=== PATIENT | female | born 1975 | race Caucasian/White ===

== ENCOUNTER 2023-07-21 09:15 | Emergency (ER) | payer OTHER, SELFPAY ==
[2023-07-21 09:27] VITALS: BP 141/66; PULSE 96; O2SAT 98
[2023-07-21 09:30] VITALS: BP 141/66; PULSE 91; RESP 20; TEMP 36.7; O2SAT 98; BMI 30.4
--- NOTE | 2023-07-21 09:45 | DI.RAD.S_ITS ---
PROCEDURE: XR CHEST 1V INDICATIONS: chest pain TECHNIQUE: One view of the chest was acquired. COMPARISON: None. FINDINGS: Surgical changes and devices: None. Lungs and pleura: Lungs are clear. No pleural effusions or pneumothorax. Mediastinum: Mediastinal contours appear normal. Heart size is normal. Bones and chest wall: No suspicious bony lesions. Overlying soft tissues appear unremarkable. IMPRESSION: No acute cardiopulmonary abnormality is seen. Dictated by: Cris Alcantara M.D. on 07/21/2023 at 10:08 Approved by: Cris Alcantara M.D. on 07/21/2023 at 10:09
[2023-07-21 10:07] LABS: Add Manual Diff / Slide Review NO; Basophils Absolute Auto 100 /uL (0-100); Basophils Percent Auto 0.6 % (0-2); Eosinophils Absolute Auto 200 /uL (0-450); Eosinophils Percent Auto 1.9 % (2-4); Hematocrit 39.3 % (36-46); Hemoglobin 13.7 g/dL (12.0-16.0); Lymphocytes Absolute Auto 1800 /uL (1100-4500); Lymphocytes Percent Auto 17.2 % (25-40); Mean Corpuscular HGB Conc 34.8 % (30-36); Mean Corpuscular Hemoglobin 31.5 PG (26-34); Mean Corpuscular Volume 90.5 fL (80-100); Monocytes Absolute Auto 700 /uL (0-900); Monocytes Percent Auto 6.6 % (3-14); Neutrophils Absolute Auto 7600 /uL (1500-7000); Neutrophils Percent Auto 73.7 % (50-75); Platelet Count 249 X10^3/uL (150-400); Red Blood Cell Count 4.35 X10^6/uL (4.0-5.2); Red Cell Distribution Width 12.7 % (11.6-14.8); White Blood Cell Count 10.4 X10^3/uL (4.5-11.0)
[2023-07-21 10:12] LABS: Prothrombin Time 11.2 SECONDS (9.4-12.5)
[2023-07-21 10:15] LABS: PTT Partial Thromboplastin Tim 33 SECONDS (25.1-36.5)
[2023-07-21 10:20] LABS: Alanine Aminotransferase 72 IU/L (<35); Albumin 4.1 g/dL (3.5-5.0); Albumin Globulin Ratio 1.9 (1.0-2.8); Alkaline Phosphatase 66 U/L (38-126); Aspartate Aminotransferase 51 IU/L (14-36); BUN Creatinine Ratio 18.2 (6-22); Bilirubin Total 0.5 mg/dL (0.2-1.3); Blood Urea Nitrogen 12 mg/dL (7-17); Calcium 8.8 mg/dL (8.4-10.2); Carbon Dioxide 28 mmol/L (22-32); Chloride 106 mmol/L (98-107); Creatine Kinase 60 U/L (30-135); Estimated Glomerular Filt Rate > 60 mL/min (>60); Globulin 2.2 g/dL (1.7-4.1); Glucose 92 mg/dL (70-100); HEMOLYSIS < 15 (0-50); Lipase 41 U/L (23-300); Potassium 3.8 mmol/L (3.4-5.1); Sodium 137 mmol/L (137-145); Total Protein 6.3 g/dL (6.3-8.2)
[2023-07-21 10:29] LABS: Troponin I < 0.012 ng/mL (0.01-0.034)
--- NOTE | 2023-07-21 10:36 | ED.DIZZY ---
HPI - Dizziness General Chief Complaint: Dizziness Stated Complaint: Light headed , Shaky doesn't feel good Time Seen by Provider: 07/21/23 10:29 Source: patient Mode of arrival: Ambulatory History of Present Illness HPI Narrative: Patient is a 48-year-old female with history of migraine presenting today with headache some right-sided facial numbness and some dizziness. He reports that yesterday she just started feeling not well like something with right. He would some numbness in her right hand that started after she slept on it funny and quickly went away. Today she is noticing mild headache which is not typical for migraines. And some dizziness when she stands up. She denies any fever no significant neck pain no chest pain or palpitations. No abdominal pain no nausea or vomiting. She has not taken anything for headache today it has not severe she just does not feel quite right when she is lying down she no longer feels dizzy. She is able to ambulate in the ED significant problem or issue Patient History Social History Smoking Status: Never smoker Smoking Status: Never smoker alcohol intake frequency: 0-2 drinks per day Substance Use Type: does not use Exam Initial Vital Signs Initial Vital Signs: Vital Signs Pulse Rate 96 H 07/21/23 09:27 Blood Pressure 141/66 H 07/21/23 09:27 Pulse Oximetry 98 07/21/23 09:27 GENERAL: Alert well-appearing 48-year-old female and in no acute distress. HEENT: Head atraumatic,EOMI, pupils reactive, face symmetric, moist mucous membranes CARDIOVASCULAR: Regular rate and rhythm without murmurs, rubs or gallops. RESPIRATORY: Breath sounds equal bilaterally, no wheezes rales or rhonchi. ABDOMEN: Soft, nontender. Normoactive bowel sounds all 4 quadrants. No guarding or rebound. EXTREMITIES: Normal range of motion, no clubbing or edema. Neurovascularly intact NEUROLOGICAL: Alert and oriented x4.Normal gait and speech. Cranial nerves II through XII grossly intact. Good [id number], good [id number], strength equal bilaterally, no dysarthria or aphasia, sensation in tact to soft touch bilaterally, no visual changes, no facial droop SKIN: Warm, dry, no laceration, no petechiae, no rashes or lesions. Scores NIH Stroke Scale Level of Conciousness: Alert, keenly responsive Ask month/age: Answers both questions correctly. Open/close eyes, close hand: Performs both tasks correctly Best gaze horizontal: Normal Visual borges: No visual loss Facial palsy: Normal symetrical movement Left arm drift: No drift for full 10 sec Right arm drift: No drift for full 10 sec Left leg drift: No drift for full 5 sec Right leg drift: No drift for full 5 sec Limb ataxia: Absent Sensory on face/arms/legs: Mild to moderate sensory loss, can tell touch Best language: No aphasia, normal Dysarthria: Normal Extinction or inattention: No abnormality Total NIH Stroke scale score: 1 Course Orders Ordered: Discontinued Medications Sodium Chloride (Normal Saline 0.9%) 1,000 mls @ 1,000 mls/hr IV BOLUS ONE Stop: 07/21/23 11:35 Last Infusion: 07/21/23 12:19 Dose: Infused Documented By: Admin: 07/21/23 10:47 Dose: 1,000 mls/hr Documented By: KARLI Ketorolac Tromethamine (Ketorolac 30 Mg/Ml Vial) 15 mg IV NOW ONE Stop: 07/21/23 10:37 Last Admin: 07/21/23 10:48 Dose: 15 mg Documented By: KARLI Ondansetron HCl (Ondansetron 4 Mg/2 Ml Inj) 4 mg IV NOW ONE Stop: 07/21/23 10:37 Last Admin: 07/21/23 12:20 Dose: Not Given Documented By: MOISES Vital Signs Vital signs: Vital Signs - 8 hr 07/21/23 09:27 07/21/23 09:27 07/21/23 09:30 Temperature 98.1 F Pulse Rate 96 H 91 H Respiratory Rate 20 Blood Pressure 141/66 H 141/66 H Pulse Oximetry 98 98 Oxygen Delivery Method Room Air 07/21/23 11:57 07/21/23 11:57 07/21/23 12:00 Temperature Pulse Rate 88 Respiratory Rate Blood Pressure 132/65 125/61 Pulse Oximetry 100 Oxygen Delivery Method 07/21/23 12:00 Temperature Pulse Rate 88 Respiratory Rate Blood Pressure Pulse Oximetry 99 Oxygen Delivery Method MDM - Dizziness Lab Data 07/21/23 09:58 07/21/23 09:58 Labs: Lab Results 07/21/23 Range/Units 09:58 WBC 10.4 (4.5-11.0) X10^3/uL RBC 4.35 (4.0-5.2) X10^6/uL Hgb 13.7 (12.0-16.0) g/dL Hct 39.3 (36-46) % MCV 90.5 (80-100) fL MCH 31.5 (26-34) PG MCHC 34.8 (30-36) % RDW 12.7 (11.6-14.8) % Plt Count 249 (150-400) X10^3/uL Neut % (Auto) 73.7 (50-75) % Lymph % (Auto) 17.2 L (25-40) % [place] % (Auto) 6.6 (3-14) % Eos % (Auto) 1.9 L (2-4) % Baso % (Auto) 0.6 (0-2) % Neut # (Auto) 7600 H (1796-7405) /uL Lymph # (Auto) 1800 (3116-7848) /uL [place] # (Auto) 700 (0-900) /uL Eos # (Auto) 200 (0-450) /uL Baso # (Auto) 100 (0-100) /uL PT 11.2 (9.4-12.5) SECONDS INR 1.0 (0.9-1.3) APTT 33 (25.1-36.5) SECONDS Sodium 137 (137-145) mmol/L Potassium 3.8 (3.4-5.1) mmol/L Chloride 106 (98-107) mmol/L Carbon Dioxide 28 (22-32) mmol/L BUN 12 (7-17) mg/dL Creatinine 0.66 (0.52-1.04) mg/dL Estimated GFR > 60 (>60) mL/min BUN/Creatinine Ratio 18.2 (6-22) Glucose 92 (70-100) mg/dL Calcium 8.8 (8.4-10.2) mg/dL Magnesium 2.0 (1.6-2.3) mg/dL Total Bilirubin 0.5 (0.2-1.3) mg/dL AST 51 H (14-36) IU/L ALT 72 H (<35) IU/L Alkaline Phosphatase 66 (38-126) U/L Total Creatine Kinase 60 (30-135) U/L Troponin I < 0.012 (0.01-0.034) ng/mL Total Protein 6.3 (6.3-8.2) g/dL Albumin 4.1 (3.5-5.0) g/dL Globulin 2.2 (1.7-4.1) g/dL Albumin/Globulin Ratio 1.9 (1.0-2.8) Lipase 41 (23-300) U/L Point of Care Testing Test Results Negative Glucose POC 93 Urine Dip Bedside Urine Glucose Negative Bedside Urine Bilirubin - Negative Bedside Urine Ketone - Negative Urine Specific Swain 1.010 Bedside Urine Occult Blood - Negative Bedside Urine pH 6.0 Bedside Urine Protein - Negative Bedside Urine Urobilinogen - Negative Bedside Urine Nitrite - Negative Bedside Urine Leukocytes - Negative Esterase Imaging Data Chest x-ray: Radiologist's Impression: PROCEDURE: XR CHEST 1V INDICATIONS: chest pain TECHNIQUE: One view of the chest was acquired. COMPARISON: None. FINDINGS: Surgical changes and devices: None. Lungs and pleura: Lungs are clear. No pleural effusions or pneumothorax. Mediastinum: Mediastinal contours appear normal. Heart size is normal. Bones and chest wall: No suspicious bony lesions. Overlying soft tissues appear unremarkable. IMPRESSION: No acute cardiopulmonary abnormality is seen. Dictated by: Cris Alcantara M.D. on 07/21/2023 at 10:08 ECG Data Attestation: I personally reviewed and interpreted this ECG as follows: Prior ECG tracings: not available for review Interpretation: Normal sinus rhythm rate 85 VA interval 136 QRS [address] changes non pathologic Q-wave noted in lead 2 and [address] depression priors to compare MDM Narrative Medical decision making narrative: Patient is a 48-year-old female presenting today with some light dizziness and mild headache. She denies any fever neck pain. She does have some numbness the right side of her face but no actual facial droop on exam. Blood work reviewed WBC 10.4, hemoglobin 13.7, hematocrit 39.3, platelets 249, sodium 137, potassium 3.8 chloride 106 carbon dioxide 28 BUN 12 creatinine 0.6 bilirubin 0.5 AST 51, ALT 72 troponin negative lipase 41 Chest x-ray reviewed no acute cardiopulmonary process Patient received fluids Toradol and Zofran. Initially patient arrived and I 1st saw her she stood up to ambulate to the restroom when it dizzy but steady on her feet. Symptoms sound more like vertigo it seems to be very positional and not extreme. Symptoms completely resolved after fluids Toradol Zofran. She ambulated much better. Really no appreciable focal deficits. I do not see a need for head CT it has not a terrible headache she reports that she has had worse migraine she has not actively vomiting but feels slightly nauseous. No concern for meningitis without fever white count or meningeal signs. I suspect an atypical headache. I do not appreciate any evidence of Khan's palsy was also considered. Discharge Plan Departure Patient Disposition: Home Clinical Impression: Atypical migraine Instructions: DI for Headache Activity Restrictions/Additional Instructions: *You have been diagnosed with atypical headache *What to do: At this time I am glad that you are feeling better. No sign of infection. Liver enzymes are slightly elevated I do recommend that you have those rechecked with your PCP what I would not be concerned about them at this time. *Continue to take medications as directed *Follow up with your primary care provider in 2-3 days or call [phone] *Return to ER if you should have worsening headache numbness tingling weakness chest pain [or] any new, worsening or concerning symptoms Referrals: ProviderAngelo [Primary Care Provider] - Stand Alone Forms: Patient Portal/API
[2023-07-21] MEDS: SODIUM CHLORIDE 0.9% 1,000 ML 1000 ML IV (10:47)
[2023-07-21] MEDS: KETOROLAC 30 MG/ML VIAL 15 MG IV (10:48)
[2023-07-21 11:57] VITALS: BP 132/65; PULSE 88; O2SAT 100
[2023-07-21 12:00] VITALS: BP 125/61; PULSE 88; O2SAT 99
== END 2023-07-21 12:27 | disposition home or self-care (01) ==
PROVIDERS: Emergency Provider Emergency Medicine
DX: G43.809 Other migraine, not intractable, without status migrainosus (principal)
CPT/HCPCS: 36415; 71045; 80053; 81003; 81025; 82550; 82962; 83690; 83735; 84484; 85025; 85610; 85730; 93005; 96374; 99284; J1885